=== PATIENT | male | born 1995 | race Caucasian/White ===

== ENCOUNTER 2021-07-22 16:33 | Emergency (ER) | payer MEDICAID ==
[~2021-07-22] VITALS: Ht 170.2 cm; Wt 61.2 kg
[~2021-07-22 16:33] MED LIST: ABILIFY10 MG PO; ACTICIN 5% CREA60 G1 TOP; AMOXICILLIN 50500 M1 PO; DOXYCYCLINE 10100 MG PO; FLEXERIL PO; HYDROCODONE-AP1 EAC6 PO; IBUPROFEN 600600 M1 PO; PREDNISONE 10 M10 M1 PO; SEROQUEL 50 MG50 MG PO; TRAMADOL 50 MG50 MG PO; TRILEPTAL150 MG PO
[2021-07-22 16:52] VITALS: BP 121/87
== END 2021-07-22 19:29 | disposition left against medical advice (07) ==
LOC: M.ERS 16:33
DX: J02.9 Acute pharyngitis, unspecified (principal); R09.81 Nasal congestion; Z53.21 Procedure and treatment not carried out due to patient leaving prior to being seen by health care provider